=== PATIENT | female | born 1945 | race Caucasian/White ===

== ENCOUNTER → 2016-08-29 | Outpatient (CLI) | payer OTHER ==
--- NOTE | 2016-08-29 15:09 | MA ---
Screening Digital Mammogram Clinical Indications: Routine screening. Technique: Standard cephalocaudal and mediolateral oblique projections are obtained. This examinati on is processed by the [employer] computer aided detection system. Comparison: July 2015, July 2014, June 2013, May 2012 , May 2011 and May 2009 Breast density: B; There are scattered fibroglandular densities. Findings: CAD was reviewed. No suspicious findings are identified. Impression: Negative mammogram. . BI-RADS 1. Recommendation: Routine screening is recommended in one year. [facility] will send a result letter to the patient. Negative mammography should not preclude additional workup of a clinically suspicious finding. The patient's information is entered into a reminder system with a target due date for her next mammo gram.
--- NOTE | 2016-08-29 16:46 | US ---
Ultrasound arterial duplex aortoiliac and right lower extremity runoff Indication: Peripheral vascular disease. Comparison: May 12, 2015 arterial duplex, CT angiogram from August 12, 2015. Technique: Grayscale color and duplex imaging of the aortoiliac system and right lower extremity. Findings: Velocities in the aorta vary between 73 and 114 cm per second. The common iliac origin has a moderate stenosis with elevation of velocity to 226 cm per second. This 2 to 1 peak systolic velocity increas e is consistent with a 50% stenosis that is consistent with the area stenosis on the CTA as calculate d by [employer] calculations. The waveforms below the 50% stenosis remain multiphasic throughout the i liac system. External iliac velocity is 80 cm per second. There is multiphasic waveforms with normal velocities in the common femoral, profunda femoral, superf icial femoral and popliteal artery. Velocities between the common femoral and popliteal artery vary b etween 54 and 164 cm per second. Mild diffuse atherosclerotic disease is present without evidence of a focal high grade stenosis. Below knee there is multiphasic waveforms in the anterior, tibial, peroneal, and posterior tibial art eries with velocities varying between 60 to 91 cm per second. Impression: Approximately 50% stenosis at the iliac origin. Previous ultrasound over estimated the s tenosis and the stenosis was approximately 50% by volume on the CTA when calculated using [employer].
== END ==
LOC: BMCIMAGING 10:40
DX: Z12.31 Encounter for screening mammogram for malignant neoplasm of breast (principal); I73.9 Peripheral vascular disease, unspecified
CPT/HCPCS: G0202

== ENCOUNTER → 2016-10-30 | Outpatient (CLI) | payer OTHER | LOC: BMCIMAGING 09:44 | PROVIDERS: ATTEND Internal Medicine | DX: Z13.820 Encounter for screening for osteoporosis (principal) ==

== ENCOUNTER → 2017-04-09 | Outpatient (CLI) | payer OTHER | LOC: FIMAGING 15:45 | PROVIDERS: ATTEND Physician Assistant | DX: Z01.818 Encounter for other preprocedural examination (principal); M17.11 Unilateral primary osteoarthritis, right knee; Z96.643 Presence of artificial hip joint, bilateral ==

== ENCOUNTER 2017-04-18 11:00 | Observation (INO) | payer OTHER ==
[2017-04-18] MEDS ORDERED: diphenhydrAMINE 25 MG CAP PO ONE ×2 (11:03→11:27)
[2017-04-18] MEDS ORDERED: ASPIRIN EC 325 MG TAB PO ONE ×2 (11:03→11:27)
[2017-04-18] MEDS ORDERED: FAMOTIDINE 20 MG TAB PO ONE (11:03)
[2017-04-18] MEDS ORDERED: DIAZEPAM 5 MG TAB PO ONE (11:03)
[2017-04-18] MEDS ORDERED: NS 1,000 ML IV ONE (11:03)
--- NOTE | 2017-04-18 11:20 | CPEKG ---
Heart Rate: 60 RR Interval: 1000 P-R Interval: 188 QRSD Interval: 96 QT Interval: 448 QTC Interval: 448 P [place]: 36 QRS [place]: 7 T Wave [place]: 45 EKG Severity - NORMAL ECG - EKG Impression: SINUS RHYTHM Electronically Signed By: Maximus Smith 18-Apr-2017 15:29:06
[2017-04-18] MEDS ORDERED: DIAZEPAM 5 MG TAB ONE (11:27)
[2017-04-18] MEDS ORDERED: FAMOTIDINE 20 MG TAB ONE (11:27)
[2017-04-18 11:31] LABS: % IMMATURE GRANULYOCYTES 0.5 % (0.0-1.1); ABSOLUTE IMMATURE GRANULOCYTES 0.03 10^3/uL (0.00-0.10); ADD DIFF? NO; ADD MORPH? NO; ADD SCAN? NO; ATYPICAL LYMPHOCYTE FLAG 20 (0-99); FRAGMENT RBC FLAG 0 (0-99); HEMATOCRIT 39.4 % (38.0-47.0); HEMOGLOBIN 13.9 g/dL (12.6-16.3); LEFT SHIFT FLG 0 (0-99); LIPEMIA HEMOLYSIS FLAG 90 (0-99); MEAN CELL HEMOGLOBIN 34.3 pg (27.9-34.1); MEAN CELL HEMOGLOBIN CONCENTR. 35.3 g/dL (32.4-36.7); MEAN CELL VOLUME 97.3 fL (81.5-99.8); MEAN PLATELET VOLUME 9.4 fL (8.7-11.7); PLATELET CLUMPS FLAG 0 (0-99); PLATELET COUNT 251 10^3/uL (150-400); RED BLOOD CELL COUNT 4.05 10^6/uL (4.18-5.33); RED CELL DISTRIBUTION WIDTH 11.5 % (11.5-15.2)
[2017-04-18 11:39] LABS: INR 1.02 (0.83-1.16); PROTIME(PATIENT) 13.3 SEC (12.0-15.0)
[2017-04-18 11:51] LABS: ANION GAP 11 mEq/L (8-16); CALCIUM 9.2 mg/dL (8.5-10.4); CARBON DIOXIDE 21 mEq/l (22-31); CHLORIDE 104 mEq/L (97-110); CHOLESTEROL 147 mg/dL (140-220); CHOLESTEROL/HDL RATIO 1.93 RATIO (1.00-4.44); CREATININE 0.6 mg/dL (0.6-1.0); GLOMERULAR FILTRATION RATE > 60; GLUCOSE 94 mg/dL (70-100); HIGH DENSITY LIPOPROTEIN 76 mg/dL (40-85); LDL/HDL RATIO 0.75 RATIO (1.00-3.22); LOW DENSITY LIPOPROTEIN 57 mg/dL (80-100); MAGNESIUM 2.1 mg/dL (1.6-2.3); NON-HIGH DENSITY LIPOPROTEIN 71 mg/dL (90-129); POTASSIUM 3.8 mEq/L (3.5-5.2); SODIUM 136 mEq/L (134-144); TRIGLYCERIDE 72 mg/dL (35-135); VERY LOW DENSITY LIPOPROTEINS 14 mg/dL (8-25)
[2017-04-18] MEDS ORDERED: LIDOCAINE 1% 300 MG/30 ML SDV ONE (12:55)
[2017-04-18] MEDS ORDERED: MIDAZOLAM 2 MG/2 ML VIAL ONE ×4 (12:56→15:09)
[2017-04-18] MEDS ORDERED: fentaNYL 100 MCG/2 ML INJ ONE ×3 (12:56→15:08)
[2017-04-18] MEDS ORDERED: IOPAMIDOL (ISOVUE-370) 150 ML BTL IV ONE ×2 (12:57→14:10)
[2017-04-18] MEDS ORDERED: BIVALIRUDIN 250 MG/5 ML VIAL IV ONE ×2 (14:00→15:09)
--- NOTE | 2017-04-18 15:02 | CPIP ---
[f rep st] INVASIVE CARDIAC PROCEDURE DATE OF PROCEDURE: 04/18/2017 PROCEDURE PERFORMED: Diagnostic left heart catheterization. INDICATION FOR PROCEDURE: Known history of coronary artery disease. New high-risk findings on exer cise nuclear stress test. The patient had 1.[address]-segment depression with exercise. Squires treadmi ll score of -1.5, placing her at moderate risk. Nuclear imaging demonstrated a large, severe intens ity reversible defect involving the apical inferior, mid inferior, mid inferolateral, basal inferior wall consistent with ischemia. There was also evidence of transient ischemic dilatation. These fi ndings were new compared to previous study done in September 2015. DESCRIPTION OF PROCEDURE: After informed consent was obtained, the patient was brought to the [facility] catheterization lab where she was prepped and draped in a sterile fashion. Prior to considering cannulation of the right common femoral artery, images were reviewed from her peripheral interventio n in 2015. 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 Based on the images of her peripheral vascular work las july, I felt that access through the right common femoral artery would be successful. Using modified Seldinger technique, a 6-Slovak catheter was placed in the right common femoral artery w ithout complications. A JL4 catheter was used to cannulate the left anterior descending coronary ar albina. Images of the left anterior descending were obtained in multiple projections. The JL4 cathet er was exchanged over a guidewire for a JR4 catheter. JR4 catheter was used to cannulate both the r ight coronary artery as well as the anomalous circumflex, which shared a common ostium with the RCA. Images of both the circumflex and right coronary artery were obtained in multiple projections. FINDINGS: 1. Left anterior descending artery: Demonstrates some mild luminal irregularities. No flow-limiti ng coronary artery disease. 2. 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 There are some mild luminal irregularities remaining in the circ umflex with no evidence of hemodynamically significant stenosis. 3. The right coronary artery is a large caliber dominant vessel that bifurcates into PDA and PLV. There is a 90% stenosis of the proximal right coronary artery. There is decreased flow throughout remainder of the stented segment of the vessel which is all the way down through the PDA. There is collateral flow from the LAD to the PLV. 4. Attempts to cross the aortic valve with pigtail catheter were unsuccessful. CONCLUSIONS: Severe single-vessel disease in a large caliber dominant right coronary artery. I hav e reviewed these images with my interventional colleague, Dr. Hamilton. We will plan for PCI to the p roximal RCA and reassess the remainder of the vessel after initial percutaneous coronary interventio n. The patient confirmed to me that she had returned to Plavix 75 mg daily in conjunction with aspi rin 81 mg daily. /[id number]/MODL
[2017-04-18] MEDS ORDERED: OXYCODONE/APAP 5/325 TAB PO PRN (15:54)
[2017-04-18] MEDS ORDERED: ONDANSETRON 4 MG/2 ML VIAL IVP PRN (15:54)
[2017-04-18] MEDS ORDERED: HYDROCODONE/APAP 5/325 TAB PO PRN (15:54)
[2017-04-18] MEDS ORDERED: ATROPINE SULFATE 1 MG/10 ML SYR IVP PRN (15:54)
[2017-04-18] MEDS ORDERED: NITROGLYCERIN 0.4 MG BTL SL PRN (15:54)
[2017-04-18] MEDS ORDERED: ACETAMINOPHEN 325 MG TAB PO PRN (16:02)
[2017-04-18] MEDS ORDERED: NS 1,000 ML IV SCH (16:15)
[2017-04-18] MEDS ORDERED: hydrALAZINE 20 MG/ML VIAL ONE (16:20)
--- NOTE | 2017-04-18 17:11 | CPEKG ---
Heart Rate: 56 RR Interval: 1071 P-R Interval: 204 QRSD Interval: 92 QT Interval: 484 QTC Interval: 468 P [place]: 20 QRS [place]: 18 T Wave [place]: 34 EKG Severity - NORMAL ECG - EKG Impression: SINUS RHYTHM Electronically Signed By: Maximus Smith 19-Apr-2017 15:55:19
--- NOTE | 2017-04-18 17:24 | ECHO ---
[id number] + + [address] : : [place] [address] : : [phone] + + Adult Echocardiographic Report + + :Name: HERMELINDA LEAL Study Date: 04/18/2017 05:04 PM : : Hospital Admission Number: [id number] : :: 1945 Gender: Female : :Age: 72 yrs Race: WH : :Reason For Study: Eval for Pericardial Effusion : :History: Cath : + + Pericardium/Pleural There is no pericardial effusion. Conclusion This is a limited echo x 2 to evaluate left ventricular systolic function and pericardial space. 1. This is a limited echo x 2 to evaluate left ventricular systolic function and pericardial space. 2. The left ventricle is normal in size and function. 3. There is no pericardial effusion. Final Reading Physician: Dale Hamilton MD electronically signed on 04/18/2017 05:23 PM Ordering Physician: Guy Rangel Performed By: Manoj Torres, CS
[2017-04-18] MEDS ORDERED: METOPROLOL SUCCINATE XR 50 MG TAB PO SCH (21:00)
[2017-04-18] MEDS ORDERED: ASPIRIN 81 MG CHEWABLE TAB PO SCH (21:00)
[2017-04-18] MEDS ORDERED: ATORVASTATIN CALCIUM 40 MG TAB PO SCH (21:00)
[2017-04-19 05:52] LABS: % IMMATURE GRANULYOCYTES 0.3 % (0.0-1.1); ABSOLUTE IMMATURE GRANULOCYTES 0.02 10^3/uL (0.00-0.10); ADD DIFF? NO; ADD MORPH? NO; ADD SCAN? NO; ATYPICAL LYMPHOCYTE FLAG 10 (0-99); FRAGMENT RBC FLAG 0 (0-99); HEMATOCRIT 36.7 % (38.0-47.0); HEMOGLOBIN 12.8 g/dL (12.6-16.3); LEFT SHIFT FLG 0 (0-99); LIPEMIA HEMOLYSIS FLAG 90 (0-99); MEAN CELL HEMOGLOBIN 34.1 pg (27.9-34.1); MEAN CELL HEMOGLOBIN CONCENTR. 34.9 g/dL (32.4-36.7); MEAN CELL VOLUME 97.9 fL (81.5-99.8); MEAN PLATELET VOLUME 9.7 fL (8.7-11.7); PLATELET CLUMPS FLAG 0 (0-99); PLATELET COUNT 223 10^3/uL (150-400); RED BLOOD CELL COUNT 3.75 10^6/uL (4.18-5.33); RED CELL DISTRIBUTION WIDTH 11.5 % (11.5-15.2)
[2017-04-19 06:14] LABS: ALANINE AMINOTRANSFERASE 27 IU/L (9-52); ALBUMIN 3.6 g/dL (3.5-5.0); ALKALINE PHOSPHATASE 64 IU/L (38-126); ANION GAP 11 mEq/L (8-16); ASPARTATE AMINOTRANSFERASE 22 IU/L (14-46); BILIRUBIN,TOTAL 1.1 mg/dL (0.1-1.4); CALCIUM 8.7 mg/dL (8.5-10.4); CARBON DIOXIDE 22 mEq/l (22-31); CHLORIDE 103 mEq/L (97-110); CREATININE 0.5 mg/dL (0.6-1.0); GLOMERULAR FILTRATION RATE > 60; GLUCOSE 79 mg/dL (70-100); POTASSIUM 3.7 mEq/L (3.5-5.2); SODIUM 136 mEq/L (134-144); TOTAL PROTEIN 6.1 g/dL (6.3-8.2)
[2017-04-19] MEDS ORDERED: VALSARTAN 160 MG TAB PO SCH (09:00)
[2017-04-19] MEDS ORDERED: CHOLECALCIFEROL VIT D3 1,000 UNITS TAB PO SCH (09:00)
--- NOTE | 2017-04-19 09:18 | CPEKG ---
Heart Rate: 64 RR Interval: 938 P-R Interval: 220 QRSD Interval: 96 QT Interval: 440 QTC Interval: 454 P [place]: 30 QRS [place]: 10 T Wave [place]: 18 EKG Severity - ABNORMAL ECG - EKG Impression: SINUS RHYTHM EKG Impression: FIRST DEGREE AV BLOCK Electronically Signed By: Maximus Smith 19-Apr-2017 15:55:06
[2017-04-19 11:34] VITALS: BP 124/63; PULSE 59; RESP 14; TEMP 97.5; O2SAT 94
--- NOTE | 2017-04-19 14:31 | ECHO ---
[id number] + + [address] : : [place] [address] : : [phone] + + Adult Echocardiographic Report + ------+ :Name: HERMELINDA LEAL KStudy Date: 04/19/2017 12:24 PM : : Hospital Admission Number: [id number] Locatio n: 204: :: 1945 Gender: Female Height: 63 in : :Age: 72 yrs Race: WH Weight: 154 lb : :Reason For Study: eval for pericardial effusion : : BSA: 1.7 meters 2 : :History: CATH : + ------+ Pericardium/Pleural No significant pericardial effusion noted. Conclusion Limited echocardiogram to reassess for pericardial effusion. No pericardial effusion present. Final Reading Physician: Ambika Coburn signed on 04/19/2017 02:29 PM Ordering Physician: Guy Rangel Performed By: Gale Cantu
--- NOTE | 2017-04-19 19:52 | GDS ---
[f rep st] DISCHARGE SUMMARY DISCHARGE DIAGNOSES: 1. Coronary artery disease: Patient has known coronary artery disease and is status post previous percutaneous coronary intervention of her right coronary artery and circumflex coronary artery. She presented with symptoms of class 2 angina and a high risk abnormal nuclear stress test. She was ta farhana to the cardiac catheterization laboratory for risk stratification where she was found to have si ngle-vessel coronary artery disease involving the right coronary artery. Patient had an approximate ly 75% stenosis in the proximal segment of the right coronary artery, representing in-stent restenos is. Patient also had a 95% stenosis in the distal right coronary artery, also representing in-stent restenosis. Percutaneous coronary intervention of the right coronary artery was attempted but was halted secondary to sub intimal dissection with inability to re-enter the right coronary artery. Th e patient was admitted to the hospital for observation overnight. Her postprocedural course was unc omplicated. She denied symptoms of chest pain. Followup echocardiogram demonstrated no evidence of pericardial effusion or segmental wall motion abnormality. Patient will be presented at the [facility] for revascularization and management strategies. 2. Hypertension: Patient has a long history of hypertension. Her blood pressure has been well con trolled on metoprolol and valsartan. Patient will be continued on these medications. 3. Hyperlipidemia: Patient has a long history of hyperlipidemia. Her LDL cholesterol is 57, on Li pitor 40 mg daily. Patient will be continued on her current medications. SUMMARY OF PRESENTATION AND COURSE: The patient is a 72-year-old female with known coronary artery disease, status post previous stenting of her right coronary artery and circumflex coronary artery. She presented in the outpatient setting with symptoms of class II angina. Stress testing was notab le for a large inferolateral perfusion defect. She was taken to the cardiac catheterization [facility] in 04/18/2017 for further risk stratification. Coronary angiography demonstrated single-vessel coronary artery disease involving her right coronary artery. She was found to have a high-grade pro ximal stenosis of approximately 75%, as well as a high-grade distal stenosis of approximately 95%; b oth of these lesions represented in-stent restenosis of the previously placed stents. Percutaneous coronary intervention of the right coronary artery was attempted but was halted secondary to subinti mal dissection in the distal vessel with failure of re-entry into the true lumen. Patient was admit nikolas to the hospital overnight for observation. Her postprocedural course was uncomplicated. James bhakta denied symptoms of angina throughout her hospitalization. Echocardiogram demonstrated no evidence of pericardial effusion, and at the time of discharge, patient was ambulating without difficulty. DISCHARGE MEDICATIONS: Please see medicine reconciliation form. PHYSICAL EXAMINATION AT DISCHARGE: GENERAL: Patient is resting comfortably in bed. She did not ap pear to be in acute distress. VITAL SIGNS: Temperature afebrile, pulse 66, blood pressure 112/71, respiratory rate 18, SaO2 95% on room air. LUNGS: Clear to auscultation bilaterally. CARDIOVASCUL AR: Regular rate and rhythm. S1, S2. No murmurs, rubs, or gallops appreciated. ABDOMEN: Soft, n ontender. Normoactive bowel sounds. EXTREMITIES: No clubbing, cyanosis, or edema. Right inguinal access site with no hematoma or ecchymosis. 2+ dorsalis pedis pulse. LABORATORY AT DISCHARGE: Sodium 136, potassium 3.7, chloride 103, CO2 22, BUN 13, creatinine 0.5. White blood cell count 5.84, hemoglobin 12.8, hematocrit 36.7, platelet count 223. ARRANGEMENTS FOR FOLLOWUP CARE: 1. Patient will follow up with Dr. Rangel of [facility] in approximately 1-2 weeks' perio d of time. 2. Patient will be presented at case conference for revascularization strategies as well as medical management strategies. INSTRUCTIONS TO PATIENT: 1. Standard groin precautions given. 2. Patient to return to the hospital for crescendo anginal symptoms. /[id number]/MODL
== END 2017-04-19 15:35 | disposition home or self-care (01) ==
LOC: FCATH 11:00 → F2W 16:03 → INTOOBSV 16:03 → F2W 18:32
PROVIDERS: ADMIT Internal Medicine Cardiovascular Disease; ATTEND Internal Medicine Cardiovascular Disease
PROC: B2151ZZ Fluoroscopy of Left Heart using Low Osmolar Contrast (ICD-10-PCS; principal; 2017-04-18)
PROC: 4A023N7 Measurement of Cardiac Sampling and Pressure, Left Heart, Percutaneous Approach (ICD-10-PCS; principal; 2017-04-18)
PROC: B2111ZZ Fluoroscopy of Multiple Coronary Arteries using Low Osmolar Contrast (ICD-10-PCS; principal; 2017-04-18)
DX: T82.857A Stenosis of other cardiac prosthetic devices, implants and grafts, initial encounter (principal); I25.119 Atherosclerotic heart disease of native coronary artery with unspecified angina pectoris; I10 Essential (primary) hypertension; E78.5 Hyperlipidemia, unspecified; I73.9 Peripheral vascular disease, unspecified
CPT/HCPCS: 93005; 93308; 93454; C1725; C1769; C1887; G0378; J0360; J0583; J1644; J2250; J3010; Q9967

== ENCOUNTER 2017-07-06 05:36 | Inpatient (IN) | payer OTHER ==
[2017-07-06] MEDS ORDERED: AMINOCAPROIC ACID 5 GM/20 ML VIAL IV ONE (06:00)
[2017-07-06] MEDS ORDERED: SODIUM BICARBONATE 20 MEQ, LIDOCAINE 1% 10 ML in NORMOSOL-R 1,000 ML MISC ONE (06:00)
[2017-07-06] MEDS ORDERED: MANNITOL 25% 12.5 GM/50 ML VIAL IVP ONE (06:00)
[2017-07-06] MEDS ORDERED: niCARdipine/NACL 200 ML IV SCH (06:00)
[2017-07-06] MEDS ORDERED: MUPIROCIN 2% 22 GM OINT NS ONE (06:00)
[2017-07-06] MEDS ORDERED: INSULIN REGULAR HUMAN 100 UNIT in NS 100 ML IV ONE ×2 (06:00→08:00)
[2017-07-06] MEDS ORDERED: CITRATE DEXTROSE SOLN 500 ML BAG MISC ONE (06:00)
[2017-07-06] MEDS ORDERED: PHENYLEPHRINE HCL 50 MG in NS 250 ML IV ONE (06:00)
[2017-07-06] MEDS ORDERED: ceFAZolin 2 GM/SWFI 2 GM/20 ML SYR IVP ONE (06:00)
[2017-07-06] MEDS ORDERED: VERAPAMIL 5 MG, NITROGLYCERIN 2.5 MG, HEPARIN 500 UNIT, SODIUM BICARBONATE 0.2 MEQ in L... MISC ONE (06:00)
[2017-07-06] MEDS ORDERED: NOREPINEPHRINE BITARTRATE 16 MG in NS 250 ML IV ONE ×2 (06:00→08:00)
[2017-07-06] MEDS ORDERED: MILRINONE/DEXTROSE/100 ML BAG IV ONE (06:07)
[2017-07-06] MEDS ORDERED: LIDOCAINE 1% 2 ML INJ ID PRN (06:07)
[2017-07-06] MEDS ORDERED: DOPamine/DEXTROSE/250 ML BAG IV ONE ×2 (06:07→11:48)
[2017-07-06] MEDS ORDERED: LR 1,000 ML IV ONE (06:07)
[2017-07-06] MEDS ORDERED: ALBUMIN 5% 250 ML BOTTLE IV ONE ×3 (06:07→11:24)
[2017-07-06] MEDS ORDERED: LIDOCAINE 2% 100 MG/5 ML SYR ONE (06:07)
[2017-07-06] MEDS ORDERED: PROTAMINE SULFATE 50 MG/5 ML VIAL IVP ONE (06:07)
[2017-07-06] MEDS ORDERED: POTASSIUM Cl (KCl) 20 MEQ/50 ML BAG IV ONE (06:07)
[2017-07-06] MEDS ORDERED: NA BICARBONATE 50 MEQ/50 ML VIAL ONE (06:07)
[2017-07-06] MEDS ORDERED: CALCIUM CHLORIDE 1 GM/10 ML INJ ONE (06:07)
[2017-07-06] MEDS ORDERED: AMINOCAPROIC ACID 5 GM/20 ML VIAL ONE (06:07)
[2017-07-06] MEDS ORDERED: methylPREDNISolone SOD SUCC 1 GM/8 ML VIAL ONE (06:08)
[2017-07-06] MEDS ORDERED: AMIODARONE HCL 150 MG/3 ML VIAL ONE (06:08)
[2017-07-06] MEDS ORDERED: CITRATE DEXTROSE SOLN 500 ML BAG ONE (06:08)
[2017-07-06] MEDS ORDERED: HEPARIN 10,000 UNIT/10 ML MDV ONE (06:08)
[2017-07-06] MEDS ORDERED: MAGNESIUM SULFATE 1 GM/2 ML VIAL ONE (06:08)
[2017-07-06] MEDS ORDERED: ADENOSINE 6 MG/2 ML VIAL ONE (06:08)
[2017-07-06] MEDS ORDERED: niCARdipine/NACL/200 ML BAG IV ONE (06:08)
[2017-07-06] MEDS ORDERED: ceFAZolin 1 GM VIAL ONE (06:09)
--- NOTE | 2017-07-06 06:36 | PDHPUP ---
History & Physical Update H&P update statement: This history and physical update is based on an assessment of the patient which was completed after admission or registration (within 24 hours), but prior to the surgery/procedure. H&P update: H&P reviewed & patient examined, no change in patient's condition since H&P completed
[2017-07-06] MEDS ORDERED: MIDAZOLAM 2 MG/2 ML VIAL IVP ONE (06:56)
--- NOTE | 2017-07-06 06:57 | PDANEPAE ---
ANE History of Present Illness cab ANE Past Medical History - Cardiovascular History Hx Hypertension: Yes Hx Arrhythmias: No Hx Chest Pain: No Hx Coronary Artery / Peripheral Vascular Disease: Yes Hx CHF / Valvular Disease: No Hx Palpitations: No Cardiovascular History Comment: STENTS PLACED X9 LAST 06/20/2017 - Pulmonary History Hx COPD: No Hx Asthma/Reactive Airway Disease: No Hx Recent Upper Respiratory Infection: No Hx Oxygen in Use at Home: No Hx Sleep Apnea: No Sleep Apnea Screening Result - Last Documented: Negative - Neurologic History Hx Cerebrovascular Accident: No Hx Seizures: No Hx Dementia: No - Endocrine History Hx Diabetes: No - Renal History Hx Renal Disorders: Yes Renal History Comment: OVERACTIVE BLADDER - Liver History Hx Hepatic Disorders: No - Neurological & Psychiatric Hx Hx Neurological and Psychiatric Disorders: No - Cancer History Hx Cancer: No - Congenital Disorder History Hx Congenital Disorders: No - GI History Hx Gastrointestinal Disorders: No - Other Health History Other Health History: OSTEOARTHRITIS BAD KNEE'S. HEREDITARY HEMOCHROMATOSIS. BRUISES EASILY - Chronic Pain History Chronic Pain: Yes (KNEE'S) - Surgical History Prior Surgeries: HEART STENT 06/20/2017. BUNNY TOTAL HIP. SHLDR RTC. TONSILLECTOMY ANE Review of Systems Review of Systems: - Exercise capacity METS (RN): 4 METS ANE Patient History - Allergies Allergies/Adverse Reactions: amoxicillin [Amoxicillin] Allergy (Severe, Verified 04/16/17 11:27) Rash ampicillin [Ampicillin] Allergy (Severe, Verified 04/16/17 11:27) Rash Penicillins Allergy (Severe, Verified 07/05/17 17:47) Rash amlodipine besylate [From Norvasc] Allergy (Mild, Verified 07/05/17 17:34) Other-Enter Comments felodipine [Felodipine] Allergy (Mild, Verified 07/05/17 17:34) Other-Enter Comments - Home Medications Home Medications: Aspirin [Aspirin 81mg (*)] 81 mg PO HS 03/30/14 [Last Taken 07/05/17 21:30] Atorvastatin Calcium [Lipitor 40 mg (*)] 40 mg PO HS 02/16/16 [Last Taken 21:30] Cholecalciferol Vit D3 [Vitamin D3] 400 units PO DAILY 07/05/17 [Last Taken 05/13 06:30] Herbals/Supplements -Info Only 1 ea PO DAILY 07/05/17 [Last Taken 07/05/17 06:30 ] amLODIPine/VALSARTAN [Amlodipine-Valsartan 10-160 mg] 1 each PO DAILY 07/05/17 [ Last Taken 07/05/17 06:30] - NPO status NPO Since - Liquids (Date): 07/05/17 NPO Since - Liquids (Time): 23:50 NPO Since - Solids (Date): 07/05/17 NPO Since - Solids (Time): 18:00 - Anes Hx Anes Hx: no prior problems - Smoking Hx Smoking Status: Former smoker ANE Labs/Vital Signs - Vital Signs Blood Pressure: 129/73 Heart Rate: 66 Respiratory Rate: 16 O2 Sat (%): 96 Height: 161.29 cm Weight: 68.039 kg ANE Physical Exam - Airway Mallampati Score: Class 2 Mouth exam: normal dental/mouth exam - Pulmonary Pulmonary: no respiratory distress - Cardiovascular Cardiovascular: regular rate and rhythym - ASA Status ASA Status: III ANE Anesthesia Plan Anesthesia Plan: general endotracheal anesthesia Lines/Monitors: arterial line, central line, ISIDRO
[2017-07-06] MEDS ORDERED: PHENYLEPHRINE 10 MG/ML SDV ONE (07:01)
[2017-07-06] MEDS ORDERED: ROCURONIUM 100 MG/10 ML VIAL ONE (07:01)
[2017-07-06] MEDS ORDERED: LIDOCAINE 2% 5 ML SDV ONE (07:06)
[2017-07-06] MEDS ORDERED: fentaNYL 250 MCG/5 ML INJ ONE ×2 (07:06)
[2017-07-06] MEDS ORDERED: PROPOFOL 200 MG/20 ML VIAL ONE (07:06)
[2017-07-06] MEDS ORDERED: LABETALOL HCL 5 MG/ML 20 ML MDV ONE (07:10)
[2017-07-06] MEDS ORDERED: PAPAVERINE HCL 60 MG/2 ML SDV ONE (07:33)
[2017-07-06] MEDS ORDERED: MINERAL OIL 10 ML VIAL ONE (07:33)
[2017-07-06] MEDS ORDERED: VERAPAMIL 5 MG/2 ML VIAL ONE (07:33)
[2017-07-06] MEDS ORDERED: SUGAMMADEX SODIUM 200 MG/2 ML VIAL IVP ONE (10:01)
[2017-07-06] MEDS ORDERED: POTASSIUM Cl (KCl) 50 ML IV PRN (11:00)
[2017-07-06] MEDS ORDERED: PANTOPRAZOLE SODIUM 40 MG VIAL IVP ONE (11:00)
[2017-07-06] MEDS ORDERED: ONDANSETRON DISINTEGRATING 4 MG TAB PO PRN (11:00)
[2017-07-06] MEDS ORDERED: POLYETHYLENE GLYCOL 3350 17 GM PKT PO PRN (11:00)
[2017-07-06] MEDS ORDERED: SODIUM CL NASAL 45 ML BTL EACHNARE PRN (11:00)
[2017-07-06] MEDS ORDERED: NS 1,000 ML IV SCH (11:00)
[2017-07-06] MEDS ORDERED: LACTULOSE 20 GM/30 ML UDCUP PO PRN (11:00)
[2017-07-06] MEDS ORDERED: CEPACOL LOZENGE PO PRN (11:00)
[2017-07-06] MEDS ORDERED: METOCLOPRAMIDE 10 MG/2 ML VIAL IVP PRN (11:00)
[2017-07-06] MEDS ORDERED: ONDANSETRON 4 MG/2 ML VIAL IVP PRN (11:00)
[2017-07-06] MEDS ORDERED: INSULIN REGULAR HUMAN 100 UNIT in NS 100 ML IV SCH (11:00)
[2017-07-06] MEDS ORDERED: D50W 25 GM/50 ML SYR IVP PRN (11:00)
[2017-07-06] MEDS ORDERED: BISACODYL 10 MG SUPP PR PRN (11:00)
[2017-07-06] MEDS ORDERED: MEPERIDINE 25 MG/ML SYR IVP PRN (11:00)
[2017-07-06] MEDS ORDERED: MAGNESIUM HYDROXIDE 30 ML UDCUP PO PRN (11:00)
[2017-07-06] MEDS ORDERED: ACETAMINOPHEN 650 MG SUPP PR PRN (11:00)
[2017-07-06] MEDS ORDERED: MAGNESIUM SULF 2 GM/WATER 50 ML IV ONE (11:00)
[2017-07-06] MEDS ORDERED: ALBUTEROL 3 ML DEYVIAL IH PRN (11:14)
[2017-07-06] MEDS ORDERED: NALOXONE HCL 0.4 MG/ML INJ IVP PRN (11:14)
--- NOTE | 2017-07-06 11:14 | POSTANESTH ---
Post Anesthetic Evaluation Cardiovascular Status: Normal, Stable Respiratory Status: Normal, Stable Level of Consciousness/Mental Status: Can Participate in Eval Pain Control: Adequate, Prn Tx Ordered Nausea/Vomiting Control: Adequate, Prn Tx Ordered Complications Possibly Related to Anesthesia: None Noted
[2017-07-06] MEDS ORDERED: fentaNYL 100 MCG/2 ML INJ ONE (11:24)
[2017-07-06] MEDS: fentaNYL 100 MCG/2 ML INJ IVP PRN ×4 (11:27→23:14)
[2017-07-06] MEDS: ALBUMIN 5% 250 ML IV PRN ×3 (11:28→14:10)
[2017-07-06] MEDS ORDERED: fentaNYL 25 MCG PATCH TD ONE (12:00)
[2017-07-06] MEDS ORDERED: KETOROLAC 30 MG/1 ML SDV IVP ONE (12:00)
[2017-07-06] MEDS: ceFAZolin 2 GM/DEXTROSE 100 ML IV SCH ×2 (14:25→21:50)
[2017-07-06] MEDS ORDERED: ALBUMIN 5% 250 ML IV ONE (14:30)
--- NOTE | 2017-07-06 14:42 | CPEKG ---
Heart Rate: 68 RR Interval: 882 P-R Interval: 216 QRSD Interval: 88 QT Interval: 468 QTC Interval: 498 P [place]: 64 QRS [place]: 1 T Wave [place]: 26 EKG Severity - BORDERLINE ECG - EKG Impression: SINUS RHYTHM EKG Impression: BORDERLINE PROLONGED QT INTERVAL Electronically Signed By: Richardson Toledo 06-Jul-2017 15:53:30
[2017-07-06] MEDS ORDERED: NOREPINEPHRINE BITARTRATE 16 MG in NS 250 ML IV SCH (15:00)
[2017-07-06] MEDS ORDERED: NOREPINEPHRINE/NS 500 ML IV SCH (15:00)
[2017-07-06] MEDS: POTASSIUM Cl (KCl) 50 ML IV SCH ×2 (15:30→18:23)
--- NOTE | 2017-07-06 16:07 | GOP ---
[f rep st] OPERATIVE REPORT DATE OF OPERATION: 07/06/2017 SURGEON: Cornelius Holliday DO HEBREW PROFESSOR: Casey Fernando PA-C. ANESTHESIA: Tomasz Bernal MD. PREOPERATIVE DIAGNOSIS: Arteriosclerotic heart disease. POSTOPERATIVE DIAGNOSIS: Arteriosclerotic heart disease. PROCEDURE PERFORMED: 1. Coronary artery bypass grafting x3 with left internal mammary artery to the mid left anterior karyna cending, saphenous vein graft to the patent ductus arteriosus, sequential posterior lateral right. 2. AtriClip to the left atrial appendage. 3. Endoscopic vein harvest of the left thigh. FINDINGS: DESCRIPTION OF PROCEDURE: Patient was consented for surgery, brought to the operating room, intubate d, and monitoring lines were placed. She was prepped and draped in sterile classical manner. Sterno rachael was performed. She was noted to be severely osteoporotic. Mammary was harvested; it was a 2 mm vessel with brisk flow. She was heparinized. Cannulated ascending aorta and right atrium in standa rd fashion without difficulty. Cardiopulmonary bypass was begun. A cardioplegic arrest was obtained with antegrade cardioplegia, topical hypothermia, and systemic cooling. Initially, a 35 mm AtriClip was applied to the left atrial appendage flush with the left atrial wall. We then proceeded with grafting the posterolateral branch of the right, which was heavily stented o ut to its midportion. It was a 1.6-1.8 mm vessel and was grafted end-to-side with the vein graft. T his was then brought off the PDA [id number], which was a 1.6 mm vessel in its proximal portion, and fusion flow was good without resistance. It was then anastomosed to the ascending aorta. Rewarming was begun while the mammary was grafted to a poor quality LAD, which, upon opening in the midportion , appeared to have a healed dissection. There was circumferential plaque throughout most of the vess el. The mammary was grafted. It was probed patent. It was tacked to the epicardium. Cross-clamp w as removed with suction on the ascending aortic vent. It should be noted that vein was harvested fro m the left thigh by DEDRA Contreras, who first assisted throughout the procedure. Spontaneous cardia c activity was noted to resume. The patient was rewarmed and weaned from bypass. Heparin was revers ed with protamine. Cannula was removed and oversewn. Two ventricular pacing wires, one left pleural , and one mediastinal drains were placed. Thymic fat and pericardium were closed. Chest was closed in standard fashion. The patient was returned to ICU in stable condition. /[id number]/MODL
[2017-07-06 19:05] LABS: CALCULATED OXYGEN SATURATION 98 % (92-95)
[2017-07-06] MEDS: HYDROCODONE/APAP 5/325 TAB PO PRN (19:08)
[2017-07-06] MEDS: SENNOSIDES/DOCUSATE SODIUM TAB PO SCH (20:19)
[2017-07-06] MEDS: MUPIROCIN 2% 22 GM OINT NS SCH (21:50)
[2017-07-06] MEDS ORDERED: FUROSEMIDE 20 MG/2 ML VIAL IVP ONE (23:30)
[2017-07-07] MEDS: HYDROCODONE/APAP 5/325 TAB PO PRN ×4 (00:12→20:21)
[2017-07-07 04:23] LABS: % IMMATURE GRANULYOCYTES 0.5 % (0.0-1.1); ABSOLUTE IMMATURE GRANULOCYTES 0.06 10^3/uL (0.00-0.10); ADD DIFF? NO; ADD MORPH? NO; ADD SCAN? NO; ANION GAP 9 mEq/L (8-16); ATYPICAL LYMPHOCYTE FLAG 0 (0-99); CARBON DIOXIDE 23 mEq/l (22-31); CHLORIDE 105 mEq/L (97-110); CREATININE 0.6 mg/dL (0.6-1.0); FRAGMENT RBC FLAG 0 (0-99); GLOMERULAR FILTRATION RATE > 60; GLUCOSE 118 mg/dL (70-100); HEMATOCRIT 26.3 % (38.0-47.0); HEMOGLOBIN 8.8 g/dL (12.6-16.3); LEFT SHIFT FLG 0 (0-99); LIPEMIA HEMOLYSIS FLAG 80 (0-99); MEAN CELL HEMOGLOBIN 34.2 pg (27.9-34.1); MEAN CELL HEMOGLOBIN CONCENTR. 33.5 g/dL (32.4-36.7); MEAN CELL VOLUME 102.3 fL (81.5-99.8); PLATELET CLUMPS FLAG 50 (0-99); PLATELET COUNT 116 10^3/uL (150-400); POTASSIUM 4.6 mEq/L (3.5-5.2); RED BLOOD CELL COUNT 2.57 10^6/uL (4.18-5.33); RED CELL DISTRIBUTION WIDTH 13.1 % (11.5-15.2); SODIUM 137 mEq/L (134-144)
[2017-07-07] MEDS: ceFAZolin 2 GM/DEXTROSE 100 ML IV SCH ×3 (05:26→21:32)
[2017-07-07] MEDS: HEPARIN 5,000 UNIT/0.5 ML SYR SC SCH ×3 (05:27→21:34)
--- NOTE | 2017-07-07 07:42 | SOAPPROG ---
SOAP Progress Note Assessment/Plan: CABGx3 (GODOY-LAD, seq SVG-PL/PD), AtriClip JEFFERSON, EVH left thigh CAD s/p CABGx3 - BB, ASA, statin when appropriate - AL/FC out - CT to water seal (?air leak) - SCDs/heparin SQ for SVT prophylaxis - Transfer PCU Acute blood loss anemia - Stable without the need for blood product transfusions Subjective: Pain well-controlled, denies N/V/SOB/abd pain. Objective: Vital Signs Temp Pulse Resp BP Pulse Ox 37.5 C 89 21 H 100/53 L 93 07/07/17 04:00 07/07/17 06:00 07/07/17 06:00 07/07/17 06:00 07/07/17 06:00 Laboratory Results 07/07/17 04:00 07/07/17 04:00 07/06/17 07/07/17 07/08/17 05:59 05:59 05:59 Intake Total 1362 Output Total 2125 Balance -763 Physical Exam - Physical Exam General Appearance: WD/WN, alert, no apparent distress EENT: No scleral icterus (R), No scleral icterus (L) Neck: normal inspection Respiratory: No respiratory distress Cardiac/Chest: regular rate, rhythm Abdomen: non-tender, soft, No distended Skin: normal color, warm/dry Extremities: pedal edema Neuro/Psych: no motor/sensory deficits, alert, normal mood/affect, oriented x 3 ICD10 Worksheet Patient Problems: Problems Problem Status Onset S/P CABG x 3 Acute Coronary arteriosclerosis Chronic Edema Acute Hypokalemia Acute Hyponatremia Acute
[2017-07-07 08:42] LABS: POTASSIUM 4.5 mEq/L (3.5-5.2)
[2017-07-07] MEDS: MUPIROCIN 2% 22 GM OINT NS SCH ×2 (09:43→21:00)
[2017-07-07] MEDS: PANTOPRAZOLE SODIUM 40 MG TAB PO SCH (09:43)
[2017-07-07] MEDS: SENNOSIDES/DOCUSATE SODIUM TAB PO SCH ×2 (09:44→20:24)
--- NOTE | 2017-07-07 10:46 | ASMTCASEMG ---
Living Arrangements What is your living Answers: With Spouse arrangement? Who do you live with? Type Of Residence What kind of residence do Answers: House you live in? Discharge Plan Comments Coordination Status Comments Notes: Pt is a 72 y/o female admitted for CAD. Pt is post op day 1 for a CABG x3. PT is recommending home independent. OT has been ordered and awaiting recommendation. Pt will most likely discharge w/out any needs and have outpatient rehab when medically stable. CM available for d/c needs. Date Signed: 07/07/2017 10:45 AM Electronically Signed By:MARINA Art
[2017-07-07] MEDS ORDERED: NS 1,000 ML IV SCH (17:45)
[2017-07-07 18:15] LABS: POTASSIUM 4.4 mEq/L (3.5-5.2)
[2017-07-07] MEDS: ASPIRIN 81 MG CHEWABLE TAB PO SCH (20:23)
[2017-07-07 23:35] LABS: HEMATOCRIT 23.2 % (38.0-47.0); HEMOGLOBIN 8.3 g/dL (12.6-16.3); MEAN CELL HEMOGLOBIN 36.6 pg (27.9-34.1); MEAN CELL HEMOGLOBIN CONCENTR. 35.8 g/dL (32.4-36.7); MEAN CELL VOLUME 102.2 fL (81.5-99.8); RED BLOOD CELL COUNT 2.27 10^6/uL (4.18-5.33); RED CELL DISTRIBUTION WIDTH 13.2 % (11.5-15.2)
[2017-07-08] MEDS: HYDROCODONE/APAP 5/325 TAB PO PRN ×2 (04:48→21:02)
[2017-07-08 05:11] LABS: % IMMATURE GRANULYOCYTES 0.5 % (0.0-1.1); ABSOLUTE IMMATURE GRANULOCYTES 0.08 10^3/uL (0.00-0.10); ADD DIFF? NO; ADD MORPH? NO; ADD SCAN? NO; ATYPICAL LYMPHOCYTE FLAG 0 (0-99); FRAGMENT RBC FLAG 0 (0-99); HEMATOCRIT 23.6 % (38.0-47.0); HEMOGLOBIN 8.3 g/dL (12.6-16.3); LEFT SHIFT FLG 10 (0-99); LIPEMIA HEMOLYSIS FLAG 90 (0-99); MEAN CELL HEMOGLOBIN 35.8 pg (27.9-34.1); MEAN CELL HEMOGLOBIN CONCENTR. 35.2 g/dL (32.4-36.7); MEAN CELL VOLUME 101.7 fL (81.5-99.8); MEAN PLATELET VOLUME 10.1 fL (8.7-11.7); PLATELET CLUMPS FLAG 10 (0-99); PLATELET COUNT 119 10^3/uL (150-400); RED BLOOD CELL COUNT 2.32 10^6/uL (4.18-5.33); RED CELL DISTRIBUTION WIDTH 13.5 % (11.5-15.2)
[2017-07-08 06:00] LABS: ANION GAP 9 mEq/L (8-16); CALCIUM 7.9 mg/dL (8.5-10.4); CARBON DIOXIDE 21 mEq/l (22-31); CHLORIDE 102 mEq/L (97-110); CREATININE 0.9 mg/dL (0.6-1.0); GLOMERULAR FILTRATION RATE > 60; GLUCOSE 115 mg/dL (70-100); POTASSIUM 4.1 mEq/L (3.5-5.2); SODIUM 132 mEq/L (134-144)
[2017-07-08] MEDS: HEPARIN 5,000 UNIT/0.5 ML SYR SC SCH ×3 (06:18→21:01)
--- NOTE | 2017-07-08 07:41 | SOAPPROG ---
SOAP Progress Note Assessment/Plan: POD #2: CABGx3 (GODOY-LAD, seq SVG-PL/PD), AtriClip [place]FF[place], EVH left thigh CAD s/p CABGx3 - BB, ASA, statin when appropriate - CTs and pacing wires likely out this morning - SCDs/heparin SQ for SVT prophylaxis Acute blood loss anemia - Stable without the need for blood product transfusions Subjective: Pain well-controlled. Denies SOB. Has a swollen area on right upper lip. Objective: Vital Signs Temp Pulse Resp BP Pulse Ox 36.9 C 97 14 110/58 L 97 07/08/17 07:26 07/08/17 07:26 07/08/17 07:26 07/08/17 07:26 07/08/17 07:26 Laboratory Results 07/08/17 04:45 07/08/17 05:30 07/07/17 07/08/17 07/09/17 05:59 05:59 05:59 Intake Total 1362 1060 Output Total 2125 495 85 Balance -763 565 -85 Physical Exam - Physical Exam General Appearance: WD/WN, alert, no apparent distress EENT: other (swollen right upper lip), No scleral icterus (R), No scleral icterus (L) Neck: normal inspection Respiratory: No respiratory distress Cardiac/Chest: regular rate, rhythm Abdomen: non-tender, soft, No distended Skin: normal color, warm/dry Extremities: No pedal edema Neuro/Psych: no motor/sensory deficits, alert, normal mood/affect, oriented x 3 , No motor weakness, No cognition abnormalities ICD10 Worksheet Patient Problems: Problems Problem Status Onset S/P CABG x 3 Acute Coronary arteriosclerosis Chronic Edema Acute Hypokalemia Acute Hyponatremia Acute
[2017-07-08] MEDS: PANTOPRAZOLE SODIUM 40 MG TAB PO SCH (08:17)
[2017-07-08] MEDS: MUPIROCIN 2% 22 GM OINT NS SCH (08:17)
[2017-07-08] MEDS: SENNOSIDES/DOCUSATE SODIUM TAB PO SCH ×2 (08:17→21:02)
[2017-07-08] MEDS ORDERED: FUROSEMIDE 20 MG TAB PO SCH (09:30)
[2017-07-08] MEDS: traMADol 50 MG TAB PO PRN ×2 (13:14→18:24)
[2017-07-08] MEDS: ASPIRIN 81 MG CHEWABLE TAB PO SCH (21:01)
[2017-07-09] MEDS: HEPARIN 5,000 UNIT/0.5 ML SYR SC SCH ×3 (06:24→20:40)
--- NOTE | 2017-07-09 06:48 | SOAPPROG ---
SOAP Progress Note Assessment/Plan: POD #3: CABGx3 (GODOY-LAD, seq SVG-PL/PD), AtriClip [place], EVH left thigh CAD s/p CABGx3 - BB, ASA, statin when appropriate - CTs and pacing wires out - SCDs/heparin SQ for SVT prophylaxis Acute blood loss anemia - Stable without the need for blood product transfusions Disposition - Home without services Sunday Subjective: Denies CP/SOB. Objective: Vital Signs Temp Pulse Resp BP Pulse Ox 36.9 C 102 H 19 101/67 93 07/09/17 04:00 07/09/17 04:00 07/09/17 04:00 07/09/17 04:00 07/09/17 04:00 Laboratory Results 07/08/17 04:45 07/08/17 05:30 07/08/17 07/09/17 07/10/17 05:59 05:59 05:59 Intake Total 1060 2656 Output Total 495 535 Balance 565 2121 Physical Exam - Physical Exam General Appearance: WD/WN, alert, no apparent distress EENT: No scleral icterus (R), No scleral icterus (L) Neck: normal inspection Respiratory: No respiratory distress Cardiac/Chest: regular rate, rhythm Abdomen: non-tender, soft, No distended Skin: normal color, warm/dry Extremities: pedal edema Neuro/Psych: no motor/sensory deficits, alert, normal mood/affect, oriented x 3 ICD10 Worksheet Patient Problems: Problems Problem Status Onset S/P CABG x 3 Acute Coronary arteriosclerosis Chronic Edema Acute Hypokalemia Acute Hyponatremia Acute
[2017-07-09] MEDS ORDERED: FUROSEMIDE 40 MG/4 ML VIAL IVP ONE ×3 (06:49→15:12)
[2017-07-09] MEDS ORDERED: CHOLECALCIFEROL PO SCH (09:00)
[2017-07-09] MEDS: SENNOSIDES/DOCUSATE SODIUM TAB PO SCH ×2 (09:26→20:41)
[2017-07-09] MEDS: CHOLECALCIFEROL VIT D3 1,000 UNITS TAB PO SCH (09:27)
[2017-07-09] MEDS: PANTOPRAZOLE SODIUM 40 MG TAB PO SCH (09:27)
[2017-07-09] MEDS: ACETAMINOPHEN 325 MG TAB PO PRN ×2 (13:03→20:41)
[2017-07-09] MEDS ORDERED: POTASSIUM CL 20 MEQ TAB PO ONE (15:12)
[2017-07-09] MEDS: ASPIRIN 81 MG CHEWABLE TAB PO SCH (20:45)
[2017-07-09] MEDS ORDERED: METOPROLOL TARTRATE 25 MG TAB PO SCH (21:00)
[2017-07-09] MEDS ORDERED: ATORVASTATIN CALCIUM 40 MG TAB PO SCH (21:00)
[2017-07-10 04:56] LABS: ANION GAP 6 mEq/L (8-16); CALCIUM 7.7 mg/dL (8.5-10.4); CARBON DIOXIDE 26 mEq/l (22-31); CHLORIDE 102 mEq/L (97-110); CREATININE 0.6 mg/dL (0.6-1.0); GLOMERULAR FILTRATION RATE > 60; GLUCOSE 94 mg/dL (70-100); POTASSIUM 3.6 mEq/L (3.5-5.2); SODIUM 134 mEq/L (134-144)
[2017-07-10] MEDS: HEPARIN 5,000 UNIT/0.5 ML SYR SC SCH (06:19)
[2017-07-10 07:28] VITALS: BP 119/58; PULSE 104; RESP 14; TEMP 98.3
[2017-07-10] MEDS ORDERED: POTASSIUM CL 20 MEQ TAB PO ONE (07:54)
--- NOTE | 2017-07-10 07:55 | SOAPPROG ---
SOAP Progress Note Assessment/Plan: POD #4: CABGx3 (GODOY-LAD, seq SVG-PL/PD), AtriClip JEFFERSON, EVH left thigh CAD s/p CABGx3 - Continue ASA, statin - BB deferred d/t hypotension - CTs and pacing wires out - SCDs/heparin SQ for SVT prophylaxis Acute blood loss anemia - Stable without the need for blood product transfusions Disposition - Home today without services Subjective: Feels well. Ready to go home. Objective: Vital Signs Temp Pulse Resp BP Pulse Ox 36.8 C 104 H 14 119/58 L 93 07/10/17 07:27 07/10/17 07:27 07/10/17 07:27 07/10/17 07:27 07/10/17 07:27 Laboratory Results 07/08/17 04:45 07/10/17 04:23 07/09/17 07/10/17 07/11/17 05:59 05:59 05:59 Intake Total 2656 1270 Output Total 535 1600 Balance 2121 -330 Physical Exam - Physical Exam General Appearance: WD/WN, alert, no apparent distress EENT: No scleral icterus (R), No scleral icterus (L) Neck: normal inspection Respiratory: No respiratory distress Cardiac/Chest: regular rate, rhythm Abdomen: non-tender, soft, No distended Skin: normal color, warm/dry Extremities: pedal edema Neuro/Psych: no motor/sensory deficits, alert, normal mood/affect, oriented x 3 ICD10 Worksheet Patient Problems: Problems Problem Status Onset S/P CABG x 3 Acute Coronary arteriosclerosis Chronic Edema Acute Hypokalemia Acute Hyponatremia Acute
--- NOTE | 2017-07-10 07:56 | PDHOMEO2F ---
Home Oxygen Face to Face Home Orders: I certify that a physician or a nurse practitioner or physician's music library assistant has had a lkow-hg-ttzl encounter with this patient on the date of this order due to the diagnosis listed, which relates to the primary reason the patient requires home oxygen. Alternative treatments have been tried, or considered, and deemed ineffective. It is anticipated that supplemental oxygen will result in improvement with treatment. Home oxygen qualifying diagnosis: s/p CABG, hypoxemia, atelectasis, SOB SpO2 on room air (%): 84 Frequency of home oxygen needed: continuous Home oxygen liters per minute: 2 Home oxygen delivery device: nasal cannula Concentrator: Yes E-tanks for mobility and back up: Yes If ordering portable O2, is the patient mobile in the home?: Yes I certify that, based on these findings, the home oxygen is medically necessary for this patient for the following length of time. Length of time home oxygen needed: 1 month
[2017-07-10] MEDS ORDERED: POTASSIUM CL 20 MEQ TAB PO SCH (09:00)
[2017-07-10] MEDS ORDERED: FUROSEMIDE 40 MG TAB PO SCH (09:00)
[2017-07-10] MEDS: PANTOPRAZOLE SODIUM 40 MG TAB PO SCH (10:02)
[2017-07-10] MEDS: CHOLECALCIFEROL VIT D3 1,000 UNITS TAB PO SCH (10:04)
[2017-07-10] MEDS: SENNOSIDES/DOCUSATE SODIUM TAB PO SCH (10:06)
[2017-07-10 10:11] VITALS: O2SAT 86
--- NOTE | 2017-07-10 15:44 | ASDISCHSUM ---
Discharge Information Plan Status:Home with No Needs Medically Cleared to Leave:07/09/2017 Discharge Date:07/10/2017 01:17 PM CM D/C Disposition:Home, Routine, Self-Care ADT D/C Disposition:Home, Routine, Self-Care Projected Discharge Date:07/10/2017 01:17 PM Transportation at D/C:Family Discharge Delay Reason: Follow-Up Date:07/10/2017 01:17 PM Discharge Slot: Final Diagnosis: Placement Information Patient Contact Information Contact Name:ZION Relationship: Address:[address] City:[place] Alternate Phone: State/Zip Code:[place] [address] Email: Financial Information Financial Class:Ty Baker Primary Plan Desc:TY GARCIA O OPEN ACC [facility] Primary Plan Number:[id number] Secondary Plan Desc:MEDICARE INPATIENT Secondary Plan Number:[id number] Assessment Information [facility] Initial CM Assessment Living Arrangements What is your living Answers: With Spouse arrangement? Who do you live with? Type Of Residence What kind of residence do Answers: House you live in? Discharge Plan Comments Coordination Status Comments Notes: Pt is a 72 y/o female admitted for CAD. Pt is post op day 1 for a CABG x3. PT is recommending home independent. OT has been ordered and awaiting recommendation. Pt will most likely discharge w/out any needs and have outpatient rehab when medically stable. CM available for d/c needs. Date Signed: 07/07/2017 10:45 AM Electronically Signed By:MARINA Art Intervention Information
--- NOTE | 2017-07-10 19:45 | PDDCSUM ---
Discharge Summary Discharge Summary: ADMISSION DATE: 07/06/17 DISCHARGE DATE: 07/10/17 ADMISSION DX: 1. Coronary atherosclerotic disease DISCHARGE DX: 1. Coronary atherosclerotic disease 2. Acute blood loss anemia PROCEDURES 07/06/17, Cornelius Holliday: 1. CABGx3 (GODOY-LAD, seq SVG PL/PDA), AtriClip JEFFERSON, EVH left thigh HOSPITAL COURSE BY PROBLEM LIST 1. Coronary atherosclerotic disease - s/p CABGx3 with stable postoperative course. Beta-patti deferred to low blood pressure. Aspirin and statin prescribed. 2. Acute blood loss anemia - stable without the need for blood product transfusions. CONDITION Good DISPOSITION Home ACTIVITY Pt was instructed on activity limitations and which problems to call [facility] with. Please see Discharge Plan in chart for specifics. DISCHARGE MEDICATIONS Continue: 1. Aspirin [Aspirin 81mg (*)] 81 mg PO HS 2. Atorvastatin Calcium [Lipitor 40 mg (*)] 40 mg PO HS 3. Cholecalciferol Vit D3 [Vitamin D3] 400 units PO DAILY 4. Herbals/Supplements -Info Only 1 ea PO DAILY New: 1. Acetaminophen [Tylenol 325mg (*)] 325 - 650 mg PO Q4HRS PRN 2. Furosemide [Lasix 40 MG (*)] 40 mg PO DAILY 3. Potassium Cl [Klor-Con 20 meq (*)] 20 meq PO DAILY 4. traMADol [Ultram 50 mg (*)] 50 - 100 mg PO Q4HRS PRN Discontinue 1. Troprol XL 50 mg daily 2. Amlodipine/Valsartan 10-160 mg daily PENDING STUDIES/LABS 1. CXR prior to surgical follow-up F/U APPOINTMENTS 1. Cornelius Holliday - 07/17/17, 9:00 AM
== END 2017-07-10 13:17 | disposition home or self-care (01) | DRG 236 ==
LOC: F2W 05:36 → F2N 09:59 → F2W 07-07 13:35
PROVIDERS: ADMIT Thoracic Surgery (Cardiothoracic Vascular Surgery); ATTEND Thoracic Surgery (Cardiothoracic Vascular Surgery)
PROC: 5A1221Z Performance of Cardiac Output, Continuous (ICD-10-PCS; principal; 2017-07-06 07:15)
PROC: 06BQ4ZZ Excision of Left Saphenous Vein, Percutaneous Endoscopic Approach (ICD-10-PCS; principal; 2017-07-06 07:15)
PROC: 02100Z9 Bypass Coronary Artery, One Artery from Left Internal Mammary, Open Approach (ICD-10-PCS; principal; 2017-07-06 07:15)
PROC: 021109W Bypass Coronary Artery, Two Arteries from Aorta with Autologous Venous Tissue, Open Approach (ICD-10-PCS; principal; 2017-07-06 07:15)
PROC: 02L70CK Occlusion of Left Atrial Appendage with Extraluminal Device, Open Approach (ICD-10-PCS; principal; 2017-07-06 07:15)
PROC: 30233N1 Transfusion of Nonautologous Red Blood Cells into Peripheral Vein, Percutaneous Approach (ICD-10-PCS; 2017-07-06 07:15)
DX: I25.10 Atherosclerotic heart disease of native coronary artery without angina pectoris (principal); D62 Acute posthemorrhagic anemia; I73.9 Peripheral vascular disease, unspecified; I10 Essential (primary) hypertension; Z95.5 Presence of coronary angioplasty implant and graft; Z96.643 Presence of artificial hip joint, bilateral
CPT/HCPCS: 82947-QW; 97116-GP; 97161-GP; 97166-GO; 97530-GO; 97530-GP; 97535-GO; G8978-GP-CK; G8979-GP-CI; G8980-GP-CI; G8987-GO-CI; G8987-GO-CK; G8988-GO-CI; G8989-GO-CI; J0153; J0171; J0282; J0690; J1265; J1644; J1815; J1885; J1940; J2001; J2150; J2250; J2260; J2370; J2405; J2440; J2704; J2720; J2930; J3010; J3490; J7060; P9041

== ENCOUNTER → 2017-07-16 | Outpatient (CLI) | payer OTHER | LOC: FIMAGING 10:50 | PROVIDERS: ATTEND Thoracic Surgery (Cardiothoracic Vascular Surgery) | DX: J90 Pleural effusion, not elsewhere classified (principal); J98.11 Atelectasis; Z95.1 Presence of aortocoronary bypass graft ==

== ENCOUNTER → 2017-07-23 | Outpatient (CLI) | payer OTHER | LOC: BMCIMAGING 12:53 | PROVIDERS: ATTEND Internal Medicine | DX: R07.9 Chest pain, unspecified (principal); J90 Pleural effusion, not elsewhere classified ==

== ENCOUNTER → 2017-08-01 | Outpatient (CLI) | payer OTHER | LOC: FIMAGING 14:31 | PROVIDERS: ATTEND Thoracic Surgery (Cardiothoracic Vascular Surgery) | DX: Z09 Encounter for follow-up examination after completed treatment for conditions other than malignant neoplasm (principal); Z95.1 Presence of aortocoronary bypass graft ==

== ENCOUNTER → 2017-09-05 | Outpatient (CLI) | payer OTHER | LOC: BMCIMAGING 12:59 | PROVIDERS: ATTEND Internal Medicine | DX: Z12.31 Encounter for screening mammogram for malignant neoplasm of breast (principal) ==

== ENCOUNTER → 2017-11-13 | Outpatient (CLI) | payer OTHER | LOC: BMCIMAGING 15:12 | PROVIDERS: ATTEND Family Medicine | DX: S09.93XA Unspecified injury of face, initial encounter (principal) ==

== ENCOUNTER → 2018-06-29 | Outpatient (CLI) | payer OTHER | LOC: FIMAGING 10:30 | PROVIDERS: ATTEND Orthopaedic Surgery | DX: Z01.818 Encounter for other preprocedural examination (principal); M17.11 Unilateral primary osteoarthritis, right knee; Z96.643 Presence of artificial hip joint, bilateral ==

== ENCOUNTER 2018-08-12 08:06 | Observation (INO) | payer OTHER ==
--- NOTE | 2018-08-12 06:30 | PDHPUP ---
History & Physical Update H&P update statement: This history and physical update is based on an assessment of the patient which was completed after admission or registration (within 24 hours), but prior to the surgery/procedure. H&P update: no change in patient's condition since H&P completed
--- NOTE | 2018-08-12 06:30 | PDIAF ---
- Diagnosis Diagnosis: right knee djd Code Status: Full Code - Medication Management Discharge Medications: electronically signed and located in the Home Medication List. - Orders Services needed: Home Care, Physical Therapy Home Care Face to Face: I certify that this patient was under my care and that I had the required gypm-eg-cfnk encounter meeting the encounter requirements on the discharge day. My findings support the fact that the patient is homebound as defined in Home Care Face to Face Continued: CMS Chapter 7 Medicare Benefits Manual 30.1.1 , The condition of the patient is such that there exists a normal inability to leave home and consequently, leaving home would require a considerable and taxing effort. Isolation Type: None Diet Recommendation: no restrictions on diet Diet Texture: Regular Texture Diet Additional Instructions: TOTAL JOINT ARTHROPLASTY DISCHARGE INSTRUCTIONS 1. Your surgeon follows the [facility] protocol for reducing your risk of DVT (blood clots) following surgery. Medication will be ordered to prevent blood clots. A sudden increase in calf pain and/or swelling could indicate a blood clot in your leg. If this occurs, please call your surgeon or his/her assistant teacher primary. An ultrasound of the leg may be necessary to diagnose a blood clot. If you have conditions that make you a higher risk for blood clots, your surgeon may use more aggressive ways to prevent them. Notify your surgeon if you think you are a high risk for blood clots. 2. Wear your white surgical stockings (PRETTY hose) for 2 weeks. This decreases your swelling and may help prevent blood clots. It is ok to remove PRETTY hose at night time to give your legs a break. 3. Swelling and bruising in the surgical leg is common. If you feel that it is excessive, please notify your surgeon. 4. Elevate your surgical leg with the ankle above the hip several times every day. Please keep the leg straight when you elevate by putting pillows under your foot. Do not put pillows under your knee. This will make being able to fully straighten more difficult. This is uncomfortable, but try to do it as much as possible. 5. For total knee replacements use compressive wrap on your knee for 3-5 days after surgery, then you can discontinue it. 6. Use a walker or crutches for 1-2 weeks. Progress your weight-bearing as tolerated. You may start to use a cane when you feel stable and safe. 7. You will receive physical therapy instructions in the hospital. Continue those exercises at home. There are additional exercises in the total joint booklet you were given before surgery. Outpatient physical therapy will begin 7- 10 days after surgery. Please schedule this in advance. 8. Use ice on your knee at least 3-5 times every day for 30 minutes. This helps reduce pain and swelling. Also use it at night before falling asleep. 9. Leave your surgical dressing in place for 2 weeks. Your dressing is water resistant, but not waterproof. Cover it with Saran Wrap or Tisbw-r-Aqlx before showering. You may shower as soon as you feel safe entering a shower. If you notice bleeding from your incision 2 or 3 days after surgery, please notify your surgeon. 10. Due to narcotics, decreased activity and altered diet, most patients experience constipation after surgery. Use yzry-lsk-onqwcpg stool softeners while you are on narcotics. 11. You may drive a car when you are comfortable bearing weight, have good muscular control of your leg and are off narcotics. This usually occurs 2-4 weeks after surgery, depending on which leg was operated on. 12. If there are questions not addressed here, please refer the [facility] book given for more information. If you still have questions, please contact your surgeon s office. 13. If you have a life-threatening emergency, please call 911 and go to the emergency room immediately. For non-life threatening emergencies, please call your physicians office for advice before going to the emergency room. - Follow Up Care Current Providers and Referrals: Airam Christian MD [Primary Care Provider] - Tenzin Richmond MD [Medical Doctor] -
[~2018-08-12 08:06] MED LIST: CALCIUM CHLORIDE 1 GM/10 ML INJ ONE; ROPIVACAINE 0.2% 80 MG, EPINEPHrine 0.2 MG, KETOROLAC TROMETHAMINE 30 MG, morphINE 10 M... IU ONE; THROMBIN (BOVINE) 5,000 UNIT VIAL TP ONE; TRANEXAMIC ACID 1,000 MG in NS 100 ML IV ONE; VANCOMYCIN HCL/NORMAL SALINE 250 ML IV ONE; VANCOMYCIN PHARMACY TO DOSE MISC ONE; ceFAZolin 1 GM/5 ML SYR ONE
[2018-08-12] MEDS ORDERED: ACETAMINOPHEN 325 MG TAB PO ONE (08:22)
[2018-08-12] MEDS ORDERED: FAMOTIDINE 20 MG TAB PO ONE (08:22)
[2018-08-12] MEDS ORDERED: LR 1,000 ML IV ONE (08:23)
--- NOTE | 2018-08-12 09:30 | PDANEPAE ---
ANE History of Present Illness Total Knee arthroplasty, R ANE Past Medical History - Cardiovascular History Hx Hypertension: Yes Hx Arrhythmias: No Hx Chest Pain: No Hx Coronary Artery / Peripheral Vascular Disease: Yes Hx CHF / Valvular Disease: No Hx Palpitations: No Cardiovascular History Comment: HPL,. STENTS PLACED X9 LAST 06/20/2017. CABGX3 on 07/13 - Pulmonary History Hx COPD: No Hx Asthma/Reactive Airway Disease: No Hx Recent Upper Respiratory Infection: No Hx Oxygen in Use at Home: No Hx Sleep Apnea: No Sleep Apnea Screening Result - Last Documented: Negative - Neurologic History Hx Cerebrovascular Accident: No Hx Seizures: No Hx Dementia: No - Endocrine History Hx Diabetes: No Hypothyroid: No Hyperthyroid: No Obesity: no - Renal History Hx Renal Disorders: Yes Renal History Comment: OVERACTIVE BLADDER - Liver History Hx Hepatic Disorders: No - Neurological & Psychiatric Hx Hx Neurological and Psychiatric Disorders: No - Cancer History Hx Cancer: No - Congenital Disorder History Hx Congenital Disorders: No - GI History GERD: no Hx Gastrointestinal Disorders: No - Other Health History Other Health History: OSTEOARTHRITIS BAD KNEE'S. HEREDITARY HEMOCHROMATOSIS. BRUISES EASILY. HX of SCOLIOSIS - Chronic Pain History Chronic Pain: Yes (RT KNEE) - Surgical History Prior Surgeries: GABGX3 06/2017. HEART STENT 06/20/2017. BUNNY TOTAL HIP. SHLDR RTC. TONSILLECTOMY ANE Review of Systems Review of Systems: - Exercise capacity METS (RN): 4 METS ANE Patient History - Allergies Allergies/Adverse Reactions: amoxicillin [Amoxicillin] Allergy (Severe, Verified 04/16/17 11:27) Rash ampicillin [Ampicillin] Allergy (Severe, Verified 04/16/17 11:27) Rash Penicillins Allergy (Severe, Verified 07/05/17 17:47) Rash - Home Medications Home Medications: Aspirin [Aspirin 81mg (*)] 81 mg PO HS 03/30/14 [Last Taken 08/08/18] Atorvastatin Calcium [Lipitor 40 mg (*)] 40 mg PO HS 02/16/16 [Last Taken 1 Day Ago ~08/11/18] Cholecalciferol Vit D3 [Vitamin D3] 400 units PO DAILY 07/05/17 [Last Taken 08/13] Herbals/Supplements -Info Only 1 ea PO DAILY 07/05/17 [Last Taken 08/08/18] Amlodipine Besylate/Valsartan [Amlodipine-Valsartan 10-160 mg] 1 each PO DAILY 07/26/18 [Last Taken 1 Day Ago ~08/11/18] Metoprolol Succinate Xr [Toprol Xl 50 mg (*)] 50 mg PO HS 07/26/18 [Last Taken 1 Day Ago ~08/11/18] Amitriptyline HCl [Elavil 10 mg (*)] 10 mg PO HS 08/12/18 [Last Taken Unknown] - NPO status NPO Since - Liquids (Date): 08/12/18 NPO Since - Liquids (Time): 07:30 NPO Since - Solids (Date): 08/11/18 NPO Since - Solids (Time): 19:30 - Smoking Hx Smoking Status: Former smoker ANE Labs/Vital Signs - Vital Signs Blood Pressure: 132/69 Heart Rate: 62 Respiratory Rate: 16 O2 Sat (%): 98 Height: 158.75 cm Weight: 63.503 kg ANE Physical Exam - Airway Neck exam: FROM Mallampati Score: Class 3 Mouth exam: normal dental/mouth exam - Pulmonary Pulmonary: clear to auscultation - Cardiovascular Cardiovascular: regular rate and rhythym - ASA Status ASA Status: II ANE Anesthesia Plan Anesthesia Plan: spinal (Possible need for GA discussed. Questions answered.) Regional Anesthesia: adductor canal FNB
[2018-08-12] MEDS ORDERED: MIDAZOLAM 2 MG/2 ML VIAL IVP ONE (09:41)
[2018-08-12] MEDS ORDERED: fentaNYL 100 MCG/2 ML INJ ONE ×3 (09:46→12:45)
[2018-08-12] MEDS ORDERED: PROPOFOL 200 MG/20 ML VIAL ONE (09:47)
[2018-08-12] MEDS ORDERED: BUPIVACAINE/DEXTROSE 7.5MG/ML 2 ML SPINAL AMP SP ONE (10:37)
[2018-08-12] MEDS ORDERED: DEXAMETHASONE 4 MG/ML VIAL ONE (10:48)
[2018-08-12] MEDS ORDERED: ROCURONIUM 50 MG/5 ML VIAL ONE (10:48)
[2018-08-12] MEDS ORDERED: HYDROmorphONE/DILAUDID 2 MG/ML INJ ONE ×2 (11:10→12:46)
[2018-08-12] MEDS ORDERED: ePHEDrine SULFATE 25 MG/5 ML SYR ONE (11:29)
[2018-08-12] MEDS ORDERED: ONDANSETRON 4 MG/2 ML VIAL ONE (11:57)
[2018-08-12] MEDS ORDERED: SUGAMMADEX SODIUM 200 MG/2 ML VIAL IVP ONE (12:03)
[2018-08-12] MEDS ORDERED: NALOXONE HCL 0.4 MG/ML INJ IVP PRN (12:12)
[2018-08-12] MEDS ORDERED: ONDANSETRON 4 MG/2 ML VIAL IVP PRN ×2 (12:12→12:25)
[2018-08-12] MEDS ORDERED: clonIDINE 1 MG/10 ML VIAL EP ONE (12:18)
[2018-08-12] MEDS ORDERED: ROPIVACAINE HCL 150 MG/30 ML INJ ONE (12:18)
[2018-08-12] MEDS ORDERED: LACTULOSE 20 GM/30 ML UDCUP PO PRN (12:25)
[2018-08-12] MEDS ORDERED: TEMAZEPAM 15 MG CAP PO PRN (12:25)
[2018-08-12] MEDS ORDERED: diphenhydrAMINE 25 MG CAP PO PRN (12:25)
[2018-08-12] MEDS ORDERED: PROMETHAZINE HCL 25 MG SUPPR PR PRN (12:25)
[2018-08-12] MEDS ORDERED: METOCLOPRAMIDE 10 MG/2 ML VIAL IVP PRN (12:25)
[2018-08-12] MEDS ORDERED: DIPHENOXYLATE/ATROPINE LOMOTIL 1 TAB PO PRN (12:25)
[2018-08-12] MEDS ORDERED: PROMETHAZINE HCL 25 MG/ML INJ IVP PRN (12:25)
[2018-08-12] MEDS ORDERED: BISACODYL 10 MG SUPP PR PRN (12:25)
[2018-08-12] MEDS ORDERED: MAGNESIUM HYDROXIDE 30 ML UDCUP PO PRN (12:25)
[2018-08-12] MEDS ORDERED: oxyCODONE IR 5 MG TAB PO PRN (12:25)
[2018-08-12] MEDS ORDERED: ONDANSETRON DISINTEGRATING 4 MG TAB PO PRN (12:25)
[2018-08-12] MEDS ORDERED: POLYETHYLENE GLYCOL 3350 17 GM PKT PO PRN (12:25)
[2018-08-12] MEDS ORDERED: LR 1,000 ML IV SCH (12:30)
--- NOTE | 2018-08-12 12:31 | POSTOPPROG ---
Post Op Note Date of Operation: 08/12/18 Surgeon: Tenzin Richmond Porcelain Turner: attila Anesthesiologist: gemini Anesthesia: GET(General Endotracheal) Pre-op Diagnosis: righ knee djd Post-op Diagnosis: same Indication: same Procedure: right tka Inf/Abcess present in the surg proc area at time of surgery?: No Depth: Deep Incisional (Fascial) EBL: 100-500
--- NOTE | 2018-08-12 12:47 | POSTANESTH ---
Post Anesthetic Evaluation Cardiovascular Status: Similar to Pre-Op Cond Respiratory Status: Normal, Stable Level of Consciousness/Mental Status: Can Participate in Eval Pain Control: Adequate, Prn Tx Ordered Nausea/Vomiting Control: Adequate, Prn Tx Ordered Complications Possibly Related to Anesthesia: None Noted
[2018-08-12] MEDS: fentaNYL 100 MCG/2 ML INJ IVP PRN ×3 (12:50→13:10)
[2018-08-12] MEDS: HYDROmorphONE/DILAUDID 2 MG/ML INJ IVP PRN ×3 (12:50→13:10)
[2018-08-12] MEDS ORDERED: oxyCODONE IR 5 MG TAB ONE (13:17)
[2018-08-12] MEDS: TRANEXAMIC ACID 650 MG TAB PO SCH ×2 (15:19→20:18)
[2018-08-12] MEDS: ACETAMINOPHEN 325 MG TAB PO SCH ×2 (17:56→23:08)
[2018-08-12] MEDS: SENNOSIDES/DOCUSATE SODIUM TAB PO SCH (20:17)
[2018-08-12] MEDS: FAMOTIDINE 20 MG TAB PO SCH (20:17)
[2018-08-12] MEDS: ASPIRIN 325 MG TAB PO SCH (20:17)
[2018-08-12] MEDS ORDERED: ATORVASTATIN CALCIUM 40 MG TAB PO SCH (21:00)
[2018-08-12] MEDS ORDERED: METOPROLOL SUCCINATE XR 50 MG TAB PO SCH (21:00)
[2018-08-12] MEDS ORDERED: AMITRIPTYLINE HCL 10 MG TAB PO SCH (21:00)
[2018-08-12] MEDS: CYCLOBENZAPRINE 10 MG TAB PO PRN (23:09)
[2018-08-13] MEDS: ACETAMINOPHEN 325 MG TAB PO SCH ×2 (05:22→12:39)
[2018-08-13] MEDS: TRANEXAMIC ACID 650 MG TAB PO SCH (05:23)
[2018-08-13 07:19] VITALS: BP 124/62
--- NOTE | 2018-08-13 07:35 | PDIAF ---
- Diagnosis Diagnosis: right knee djd Code Status: Full Code - Medication Management Discharge Medications: electronically signed and located in the Home Medication List. - Orders Services needed: Home Care, Physical Therapy Home Care Face to Face: I certify that this patient was under my care and that I had the required wcbb-pt-pztu encounter meeting the encounter requirements on the discharge day. My findings support the fact that the patient is homebound as defined in Home Care Face to Face Continued: CMS Chapter 7 Medicare Benefits Manual 30.1.1 , The condition of the patient is such that there exists a normal inability to leave home and consequently, leaving home would require a considerable and taxing effort. Isolation Type: None Diet Recommendation: no restrictions on diet Diet Texture: Regular Texture Diet Additional Instructions: TOTAL JOINT ARTHROPLASTY DISCHARGE INSTRUCTIONS 1. Your surgeon follows the [facility] protocol for reducing your risk of DVT (blood clots) following surgery. Medication will be ordered to prevent blood clots. A sudden increase in calf pain and/or swelling could indicate a blood clot in your leg. If this occurs, please call your surgeon or his/her social media assistant. An ultrasound of the leg may be necessary to diagnose a blood clot. If you have conditions that make you a higher risk for blood clots, your surgeon may use more aggressive ways to prevent them. Notify your surgeon if you think you are a high risk for blood clots. 2. Wear your white surgical stockings (PRETTY hose) for 2 weeks. This decreases your swelling and may help prevent blood clots. It is ok to remove PRETTY hose at night time to give your legs a break. 3. Swelling and bruising in the surgical leg is common. If you feel that it is excessive, please notify your surgeon. 4. Elevate your surgical leg with the ankle above the hip several times every day. Please keep the leg straight when you elevate by putting pillows under your foot. Do not put pillows under your knee. This will make being able to fully straighten more difficult. This is uncomfortable, but try to do it as much as possible. 5. For total knee replacements use compressive wrap on your knee for 3-5 days after surgery, then you can discontinue it. 6. Use a walker or crutches for 1-2 weeks. Progress your weight-bearing as tolerated. You may start to use a cane when you feel stable and safe. 7. You will receive physical therapy instructions in the hospital. Continue those exercises at home. There are additional exercises in the total joint booklet you were given before surgery. Outpatient physical therapy will begin 7- 10 days after surgery. Please schedule this in advance. 8. Use ice on your knee at least 3-5 times every day for 30 minutes. This helps reduce pain and swelling. Also use it at night before falling asleep. 9. Leave your surgical dressing in place for 2 weeks. Your dressing is water resistant, but not waterproof. Cover it with Saran Wrap or Dcaot-j-Xlnp before showering. You may shower as soon as you feel safe entering a shower. If you notice bleeding from your incision 2 or 3 days after surgery, please notify your surgeon. 10. Due to narcotics, decreased activity and altered diet, most patients experience constipation after surgery. Use phnl-ata-wiweeoo stool softeners while you are on narcotics. 11. You may drive a car when you are comfortable bearing weight, have good muscular control of your leg and are off narcotics. This usually occurs 2-4 weeks after surgery, depending on which leg was operated on. 12. If there are questions not addressed here, please refer the [facility] book given for more information. If you still have questions, please contact your surgeon s office. 13. If you have a life-threatening emergency, please call 911 and go to the emergency room immediately. For non-life threatening emergencies, please call your physicians office for advice before going to the emergency room. - Follow Up Care Current Providers and Referrals: Airam Christian MD [Primary Care Provider] - Tenzin Richmond MD [Medical Doctor] -
--- NOTE | 2018-08-13 07:36 | SOAPPROG ---
SOAP Progress Note Assessment/Plan: Assessment: s/p tka Plan: stable d.c home when cleared by pt dvt precautions reviewed f/u at two weeks seek attn for complication 08/13/18 07:35 Subjective: no complaints slept well no cp or sob Objective: Vital Signs Temp Pulse Resp BP Pulse Ox 36.6 C 56 L 14 124/62 H 95 08/13/18 07:19 08/13/18 07:19 08/13/18 07:19 08/13/18 07:19 08/13/18 07:19 Laboratory Results 08/13/18 05:04 08/12/18 14:33 08/12/18 08/13/18 08/14/18 05:59 05:59 05:59 Intake Total 1900 Output Total 350 Balance 1550 dressing intact intact pf,df,ehl toes warm and pink neg homans jessica xrays anatomic, no fx or lucency ICD10 Worksheet Patient Problems: Problems Problem Status Onset Edema Acute Hypokalemia Acute Hyponatremia Acute S/P CABG x 3 Acute Coronary arteriosclerosis Chronic
[2018-08-13] MEDS: SENNOSIDES/DOCUSATE SODIUM TAB PO SCH (08:20)
[2018-08-13] MEDS: FAMOTIDINE 20 MG TAB PO SCH (08:20)
[2018-08-13] MEDS: ASPIRIN 325 MG TAB PO SCH (08:20)
[2018-08-13] MEDS ORDERED: VALSARTAN 160 MG TAB PO SCH (09:00)
[2018-08-13] MEDS ORDERED: VALSARTAN PO SCH (09:00)
[2018-08-13] MEDS ORDERED: AMLODIPINE BESYLATE PO SCH (09:00)
[2018-08-13] MEDS: CYCLOBENZAPRINE 10 MG TAB PO PRN (10:38)
--- NOTE | 2018-08-13 12:21 | ASMTDCNOTE ---
Case Management Discharge Discharge Order Complete? Answers: Yes Patient to Obtain Answers: via Family Medications Transportation Arranged Answers: Family/Friends Faxed Final Orders Answers: Yes Agency/Facility Transfer Answers: Yes Report Printed & Faxed to Receiving Agency Discharge Comments Notes: CM met with pt. Pt agreeable to [facility] home care. No other CM needs identified. Date Signed: 08/13/2018 12:20 PM Electronically Signed By:MARINA Bradley
--- NOTE | 2018-08-13 12:22 | ASDISCHSUM ---
Discharge Information Plan Status:Home with Home Health Medically Cleared to Leave: Discharge Date: D/C Disposition:Home Health Service ADT D/C Disposition:Home Health Service Projected Discharge Date:08/13/2018 11:00 AM Transportation at D/C: Discharge Delay Reason: Follow-Up Date:08/13/2018 11:00 AM Discharge Slot: Final Diagnosis: Placement Information Referral Type:*Home Health Care Services Referral ID:[id number] Provider Name:[facility] Address 1:[address] Address 2: City:[place] Selection Factors: State:[place] Patient Contact Information Contact Name:FANTONY Relationship: Address:[address] City:[place] Alternate Phone: State/Zip Code:[place] [address] Email: Financial Information Financial Class:Medicare Primary Plan Desc:MEDICARE INPATIENT Primary Plan Number:[id number] Secondary Plan Desc:JAZMYN GENEVIEVE CROWE Secondary Plan Number:[id number] Assessment Information LACE LACE Length of stay for Answers: 2 days current admission Acuity / Level of Answers: No Care: Did the patient have an inpatient admission? Comorbidities - select Answers: Coronary Artery Disease all that apply Opioid dependence / Chronic pain Other Notes: HTN # of Emergency department Answers: 0 visits in the last 6 months Score: 9 Date Signed: 08/13/2018 12:21 PM Electronically Signed By:MARINA Bradley Case Management Discharge Plan Note Case Management Discharge Discharge Order Complete? Answers: Yes Patient to Obtain Answers: via Family Medications Transportation Arranged Answers: Family/Friends Faxed Final Orders Answers: Yes Agency/Facility Transfer Answers: Yes Report Printed & Faxed to Receiving Agency Discharge Comments Notes: CM met with pt. Pt agreeable to [facility] home care. No other CM needs identified. Date Signed: 08/13/2018 12:20 PM Electronically Signed By:MARINA Bradley Intervention Information
--- NOTE | 2018-08-15 16:32 | GDS ---
ADMISSION DIAGNOSIS: Right knee degenerative joint disease. DISCHARGE DIAGNOSIS: Right knee degenerative joint disease. PROCEDURE: Right total knee arthroplasty. HISTORY OF PRESENT ILLNESS: The patient is a 73-year-old woman who has end[facility] Clinical and radiographic features are consistent with this. She presents for elective to emerson knee replacement. HOSPITAL COURSE: The patient was admitted to the hospital floor after uncomplicated total knee arthr oplasty. She tolerated the procedure well. Postoperatively, she had no complications. At the time of discharge, she is tolerating an oral diet. Pain is well controlled on oral medicines. She is voi ding without difficulty. Dressing is clean, dry, and intact. She has negative Homans bilateral lowe r extremities. X-rays are anatomic with no fracture, subluxation, or step-off. DISPOSITION: To home. DISCHARGE INSTRUCTIONS/FOLLOWUP: 1. Activity - She is weightbearing as tolerated. Range of motion as tolerated. 2. Keep the dressing clean, dry, and intact. If it becomes saturated, then daily dressing changes. 3. Followup in 2 weeks. /[id number]/MODL
--- NOTE | 2018-08-15 18:47 | GOP ---
DATE OF OPERATION: 08/12/2018 SURGEON: Tenzin Richmond MD STOCK WETTER: Dayna Robles RN PREOPERATIVE DIAGNOSIS: Right knee degenerative joint disease. POSTOPERATIVE DIAGNOSIS: Right knee degenerative joint disease. PROCEDURE PERFORMED: Right total knee arthroplasty. FINDINGS: SPECIMENS: To Pathology, the bony cuts. INDICATIONS: The patient is a 73-year-old woman with end-stage arthritis to her right knee. Clinical and radiographic features are consistent with this. She has failed all attempts at conservative atif gement. I have, therefore, recommended total knee replacement. I have outlined the surgical procedure , risks, benefits, and alternatives at length with her, she wished to proceed. DESCRIPTION OF PROCEDURE: The patient was identified in the preanesthesia area. The right knee clear ly demarcated as the operative site with indelible marker. She was given 2 g of Ancef intravenously i n route to the operative suite. In the OR,a spinal anesthetic placed. Attention was turned to the rig ht knee, which was sterilely prepped and draped in usual fashion. A tourniquet was applied to the upp er thigh. Appropriate time-out procedure was carried out. The limb was sterilely prepped and draped. The limb was exsanguinated with an Esmarch bandage. Tourniquet inflated to 275 mmHg. A standard anterior midline incision was made. Thick subcutaneous flaps were elevated, followed by me dial parapatellar arthrotomy. Subperiosteal elevation was carried out to the mid coronal plane. Retra ctors were placed. There was tricompartmental arthritis. Decision was made to proceed with total knee replacement. Two pins were then placed from medial to lateral across the distal femur. The femoral reference array affixed. The femoral and tibial checkpoints were placed, and a separate percutaneous incision of the mid tibia. The 2 pins were placed and the tibial reference array affixed. The bony landmarks were al l entered into the MAKOplasty robot in standard fashion. Using soft tissue releases and adjustment of the components with the MAKOplasty software, the components were balanced throughout the flexion-ext ension arc. The resections were made for the size 4 femur, size 4 tibia. Trial reduction revealed a 4 x 11 mm polyethylene to allow full extension, flexion to 120 degrees without instability through the flexion-extension arc. The trial components were withdrawn. In a sequential fashion, the tibial and femoral components were press-fit into position. A 4 x 11 mm polyethylene spacer was placed and confirmed to be fully seated. The patella was then everted, cut in a freehand cutting technique. Drill holes were made for a size 32 mm patella. Press-fit 32 mm patella was placed. The knee was taken through flexion-extension, and was stable with varus valgus stress. The kneecap tracked centrally through the trochlear groove. The wound was copiously irrigated. The joint was injected with a joint cocktail of ropivacaine, morph ine, Toradol, and epinephrine. The medial parapatellar arthrotomy closed in 20 degrees of flexion wit h a #1 Ethibond suture. The capsule instilled with a platelet-rich plasma solution. Subcutaneous tiss ue was closed using 2-0 Monocryl and the skin was stapled. Sterile compressive dressing was applied. The patient was awakened, extubated, and taken to recovery in good and stable condition. TOTAL TOURNIQUET TIME: 50 minutes. COMPLICATIONS: None. IMPLANTS: Epi Triathlon posterior stabilized femoral component size 4, X3 tibial bearing insert 4 x 11 mm, Triathlon tibial component size 4, an asymmetric patella 32 mm. DISPOSITION: To the recovery room, then floor. She is weightbearing, range of motion as tolerated. W ill follow standard recovery. /[id number]/MODL
== END 2018-08-13 12:36 | disposition home health service (06) ==
LOC: INTOOBSV 08:06 → F3N 08:06
PROVIDERS: ADMIT Orthopaedic Surgery; ATTEND Orthopaedic Surgery
DX: M17.11 Unilateral primary osteoarthritis, right knee (principal); Z95.5 Presence of coronary angioplasty implant and graft; Z95.1 Presence of aortocoronary bypass graft; E83.119 Hemochromatosis, unspecified; Z96.643 Presence of artificial hip joint, bilateral
CPT/HCPCS: 27447; 73560; 88311; 97116; 97161; 97165; C1776; G8978; G8979; G8980; G8987; G8988; G8989; J0171; J0690; J0735; J1100; J1170; J1885; J2250; J2270; J2405; J2704; J2795; J3010; J3370

== ENCOUNTER → 2018-09-25 | Outpatient (CLI) | payer OTHER | LOC: BMCIMAGING 14:24 | PROVIDERS: ATTEND Internal Medicine | DX: Z12.31 Encounter for screening mammogram for malignant neoplasm of breast (principal) ==

== ENCOUNTER → 2018-09-26 | Outpatient (CLI) | payer OTHER | LOC: BMCIMAGING 09:55 | PROVIDERS: ATTEND Physician Assistant | DX: Z47.1 Aftercare following joint replacement surgery (principal); M25.461 Effusion, right knee; Z96.651 Presence of right artificial knee joint ==

== ENCOUNTER → 2018-11-06 | Outpatient (CLI) | payer OTHER | LOC: BMCIMAGING 10:51 | PROVIDERS: ATTEND Orthopaedic Surgery | DX: Z47.1 Aftercare following joint replacement surgery (principal); Z96.651 Presence of right artificial knee joint ==

== ENCOUNTER → 2018-12-04 | Outpatient (CLI) | payer OTHER | LOC: BMCIMAGING 10:35 | PROVIDERS: ATTEND Internal Medicine | DX: Z13.820 Encounter for screening for osteoporosis (principal); Z78.0 Asymptomatic menopausal state ==

== ENCOUNTER → 2019-02-12 | Outpatient (CLI) | payer OTHER | LOC: BMCIMAGING 10:33 ==

== ENCOUNTER 2019-02-17 07:03 | Observation (INO) | payer OTHER | END 2019-02-18 10:40 | disposition home or self-care (01) | LOC: F2W 07:03 → FCATH 07:29 → F2W 10:17 ==